=== PATIENT | female | born 1955 | race African-American/Black ===

== ENCOUNTER 2019-12-10 16:45 | Emergency (ER) | payer BC ==
[~2019-12-10] VITALS: Ht 170.2 cm; Wt 82.0 kg
[2019-12-10] MEDS ORDERED: BACITRACIN ZINC OINT UDPKT TOP ONE (18:00)
[2019-12-10] MEDS ORDERED: ACETAMINOPHEN 325MG TABLET PO ONE (18:00)
[2019-12-10 19:09] VITALS: BP 122/88
== END 2019-12-10 19:12 | disposition home or self-care (01) ==
LOC: ER 16:45
DX: S49.81XA Other specified injuries of right shoulder and upper arm, initial encounter (principal); S89.81XA Other specified injuries of right lower leg, initial encounter; V49.49XA Driver injured in collision with other motor vehicles in traffic accident, initial encounter; Y93.89 Activity, other specified; Y92.488 Other paved roadways as the place of occurrence of the external cause
CPT/HCPCS: 73030; 73560; 99284